=== PATIENT | male | born 1990 | race Caucasian/White ===

== ENCOUNTER 2017-06-22 08:16 | Outpatient (CLI) ==
[2016-07-21 17:30] VITALS: BMI 26.7
[2017-06-22 08:26] LABS: BASOPHILS % (AUTO) 0.4 % (0.0-3.0); EOSINOPHILS # (AUTO) 0.2 K/ul (0.0-0.7); EOSINOPHILS % (AUTO) 2.4 % (0.0-7.0); HEMATOCRIT 51.1 % (42.0-52.0); HEMOGLOBIN 17.9 g/dl (14.0-18.0); IMMATURE GRANULOCYTE % (AUTO) 0.6 % (0.0-5.0); LYMPHOCYTES # (AUTO) 3.2 K/uL (0.60-3.4); LYMPHOCYTES % (AUTO) 35.1 (10.0-50.0); MEAN CORPUSCULAR HEMOGLOBIN 29.7 pg (27.0-31.0); MEAN CORPUSCULAR VOLUME 84.7 fl (80.0-94.0); MONOCYTES # (AUTO) 0.8 K/uL (0.4-2.0); MONOCYTES % (AUTO) 8.8 (0-10); NEUTROPHILS # (AUTO) 4.8 K/ul (2.0-6.9); NEUTROPHILS % (AUTO) 52.7; PLATELET COUNT 258 10^3/uL (140-440); RED BLOOD COUNT 6.03 10^6/ul (4.70-6.10); WHITE BLOOD COUNT 9.07 K/ul (4.2-10.2)
[2017-06-22 09:17] LABS: ALBUMIN 4.1 g/dL (3.4-5.0); ALBUMIN/GLOBULIN RATIO 1.21; ANION GAP 12.1; BILIRUBIN,TOTAL 0.38 mg/dL (0.00-1.20); BUN/CREATININE RATIO 10.89; CALCIUM 9.9 mg/dL (8.2-10.2); CHOL/HDL RATIO 4.9 (4.5-6.4); CREATININE 1.01 mg/dL (0.60-1.10); POTASSIUM 4.1 mmol/L (3.5-5.1); TOTAL PROTEIN 7.5 g/dL (6.4-8.2)
== END 2017-06-22 08:17 | disposition home or self-care (01) ==
LOC: LAB 08:16
PROVIDERS: ATTEND Nurse Practitioner Family
DX: Z00.00 Encounter for general adult medical examination without abnormal findings (principal); R45.4 Irritability and anger; F39 Unspecified mood [affective] disorder; Z72.0 Tobacco use
CPT/HCPCS: 36415; 80053; 80061; 84443; 85025

== ENCOUNTER 2017-07-06 14:47 | Outpatient (CLI) ==
[2016-07-21 17:30] VITALS: BMI 26.7
== END 2017-07-06 14:48 | disposition home or self-care (01) ==
LOC: LAB 14:47
PROVIDERS: ATTEND Nurse Practitioner Family
DX: J02.9 Acute pharyngitis, unspecified (principal)
CPT/HCPCS: 87651; 87880

== ENCOUNTER 2017-08-28 18:28 | Emergency (ER) ==
[2017-08-28 18:36] VITALS: BP 154/92; TEMP 98.3; BMI 27.8
[2017-08-28] MEDS ORDERED: DILAUDID 2 MG/ML SYRINGE IM STA (18:38)
[2017-08-28] MEDS ORDERED: PHENERGAN 25 MG/ML VIAL IM STA (18:38)
--- NOTE | 2017-08-28 18:40 | ED.PDOC ---
General ED Provider: Dr. LUIS ALBERTO GÓMEZ-ER Chief Complaint: Tooth Problem Stated Complaint: liliana got a bad tooth Time Seen by Physician: 18:38 Mode of Arrival: Walk-In Information Source: Patient Exam Limitations: No limitations [facility] T[facility] Documentation Reviewed and Agree: Yes Reviewed sepsis parameters & appropriate labs ordered?: Yes System Inflammatory Response Syndrome: Not Applicable Sepsis Protocol: For patient's 13 years and over: Temp is 96.8 and below OR 101 and greater Pulse >90 BPM Resp >20/minute Acutely Altered Mental Status Are patient's symptoms suggestive of a new infection, such as: -Pneumonia -Skin, Soft Tissue -Endocarditis -UTI -Bone, Joint Infection -Implantable Device -Acute Abdominal Infection -Wound Infection -Meningitis -Blood Stream Catheter Infection -Unknown EENT Complaint Exam - Dental/Oral Complaint/Exam Mechanism of Injury: No known trauma Onset/Duration: several days Symptoms Are: Still present Timing: Constant Initial Severity: Mild Current Severity: Moderate Location: right lower molar Character: Reports: Dull, Aching, Throbbing Aggravating: Reports: Heat, Cold, Chewing Alleviating: Reports: None Associated Signs and Symptoms: Reports: Swelling. Denies: Discharge, Fever, Foul odor, Foul taste in mouth Tooth Findings: Present: Gross decay, Gross caries Cervical Lymphadenopathy Present: No Facial Swelling Present: No Bleeding Present: No Oropharynx Findings: Absent: Clots, Active bleeding Septal Hematoma: No Foreign Body Present: No Dysphagia Present: No Drooling Present: No Asymmetrical Tonsillar Swelling Present: No Uvula Midline: Yes Rylee-tonsillar Fluctuence: No Trismus Present: No Palatal Petechiae Present: No Scarlatinaform Rash Present: No Differential Diagnoses: Dental Abcess, Dental Caries Review of Systems - Review Of Systems Constitutional: Reports: No symptoms Eyes: Reports: No symptoms Ears, Nose, Mouth, Throat: Reports: Mouth pain Respiratory: Reports: No symptoms Cardiac: Reports: No symptoms GI: Reports: No symptoms : Reports: No symptoms Musculoskeletal: Reports: No symptoms Skin: Reports: No symptoms Neurological: Reports: No symptoms Endocrine: Reports: No symptoms Hematologic/Lymphatic: Reports: No symptoms All Other Systems: Reviewed and Negative Past Medical History - Past Medical History Previously Healthy: No Endocrine: Reports: None Cardiovascular: Reports: None Respiratory: Reports: None Hematological: Reports: None Gastrointestinal: Reports: None Genitourinary: Reports: None Neuro/Psych: Reports: None Musculoskeletal: Reports: Other Cancer: Reports: None - Surgical History General Surgical History: Reports: Orthopedic (rt hand surg) - Family History Family History: Reports: Unknown - Social History Smoking Status: Current every day smoker, Heavy tobacco smoker Hx Substance Use: No Alcohol Screening: Occasionally Physical Exam - Physical Exam Appearance: Well-appearing, No pain distress, Well-nourished Pain Distress: Moderate Eyes: ALEX, EOMI, Conjunctiva clear ENT: Ears normal, Nose normal Neck: Supple Respiratory: Airway patent, Breath sounds clear, Breath sounds equal, Respirations nonlabored Cardiovascular: RRR GI/: Soft, Nontender, No masses, Bowel sounds normal, No Organomegaly Musculoskeletal: Normal strength, ROM intact, No edema, No calf tenderness Skin: Warm, Dry, Normal color Neurological: Sensation intact, Motor intact, Reflexes intact, Cranial nerves intact, Alert, Oriented Psychiatric: Affect appropriate, Mood appropriate Critical Care Note - Critical Care Note Total Time (mins): 0 Course - Course Orders, Labs, Meds: Orders Category Date Time Status Hydromorphone HCl/Pf [Dilaudid 2 mg/ml Syringe] MEDS 08/28/17 18:38 Stat 2 mg IM ONCE STA Promethazine HCl [Phenergan 25 mg/ml Vial] MEDS 08/28/17 18:38 Stat 25 mg IM ONCE STA Medications Generic Name Dose Route Start Last Admin Trade Name Freq PRN Reason Stop Dose Admin Hydromorphone HCl 2 mg 08/28/17 18:38 Dilaudid 2 Mg/Ml Syringe IM 08/28/17 18:39 ONCE STA Promethazine HCl 25 mg 08/28/17 18:38 Phenergan 25 Mg/Ml Vial IM 08/28/17 18:39 ONCE STA Vital Signs: Temp Pulse Resp BP Pulse Ox 08/28/17 18:29 98.3 F 79 16 154/92 H 96 Departure - Departure Time of Disposition: 18:40 Disposition: HOME SELF-CARE Discharge Problem: Toothache Instructions: Dental Caries (GEN) Condition: Good Pt referred to PMD for follow-up: Yes IPMP verified?: No Additional Instructions: clindamycin 150mg tid x 5 days--norco 7.5mg q 4hrs prn pain #10--f/u dentist zack Allergies/Adverse Reactions: Allergies aspirin Adverse Reaction (Verified 08/28/17 18:31) codeine Adverse Reaction (Verified 08/28/17 18:31) Penicillins Adverse Reaction (Verified 08/28/17 18:31) Disposition Discussed With: Patient, Family
== END 2017-08-28 19:10 | disposition home or self-care (01) ==
LOC: ED 18:28
DX: K08.89 Other specified disorders of teeth and supporting structures (principal); K02.7 Dental root caries; F17.210 Nicotine dependence, cigarettes, uncomplicated
CPT/HCPCS: 96372; 99282

== ENCOUNTER 2017-10-08 20:15 | Emergency (ER) ==
[2017-10-08 20:24] VITALS: BP 141/88; TEMP 98.1; BMI 28.3
--- NOTE | 2017-10-08 20:40 | ED.PDOC ---
General ED Provider: Dr. SAIRA BUSTOS Chief Complaint: Abdominal Pain Stated Complaint: Been hurting in the left side of the abdomin since morning, not associated with diarrhea, nausea or vomiting. Time Seen by Physician: 20:38 Mode of Arrival: Walk-In Information Source: Patient Primary Care Provider: SAIRA [facility] Nursing and Triage Documentation Reviewed and Agree: Yes Reviewed sepsis parameters & appropriate labs ordered?: No System Inflammatory Response Syndrome: Not Applicable Sepsis Protocol: For patient's 13 years and over: Temp is 96.8 and below OR 101 and greater Pulse >90 BPM Resp >20/minute Acutely Altered Mental Status Are patient's symptoms suggestive of a new infection, such as: -Pneumonia -Skin, Soft Tissue -Endocarditis -UTI -Bone, Joint Infection -Implantable Device -Acute Abdominal Infection -Wound Infection -Meningitis -Blood Stream Catheter Infection -Unknown GI Complaint Exam - Abdominal Pain Complaint/Exam Onset: Sudden Symptoms Are: Still present Timing: Constant Initial Severity: Severe Current Severity: Severe Location of Pain: LLQ Radiates To: Reports: Flank Character: Reports: Aching, Throbbing Aggravating: Reports: Movement Alleviating: Reports: None Associated Signs and Symptoms: Denies: Diaphoresis, Fever, Cough, Chest pain, Dizziness, Back pain, Constipation, Blood in stool, Dysuria, Urinary frequency, Decreased urine output, Decreased appetite, Discharge, Nausea, Vomiting, Diarrhea, Decreased activity AAA Risk Factors: Reports: None Cardiac Risk Factors: Reports: None Testicular Torsion Risk Factors: Reports: None Surgical Obstruction Risk Factors: Reports: None Related Surgical History: Reports: None Abdominal Findings: Present: None Differential Diagnoses: Pancreatitis, Ureteral Stone, UTI Review of Systems - Review Of Systems Constitutional: Reports: No symptoms Eyes: Reports: No symptoms Ears, Nose, Mouth, Throat: Reports: No symptoms Respiratory: Reports: No symptoms Cardiac: Reports: No symptoms GI: Reports: Abdominal pain : Reports: No symptoms Musculoskeletal: Reports: No symptoms Skin: Reports: No symptoms Neurological: Reports: No symptoms Endocrine: Reports: No symptoms Hematologic/Lymphatic: Reports: No symptoms All Other Systems: Reviewed and Negative Past Medical History - Past Medical History Previously Healthy: No Endocrine: Reports: None Cardiovascular: Reports: None Respiratory: Reports: None Hematological: Reports: None Gastrointestinal: Reports: None Genitourinary: Reports: None Neuro/Psych: Reports: None Musculoskeletal: Reports: Other Cancer: Reports: None - Surgical History General Surgical History: Reports: Orthopedic (rt hand surg) - Family History Family History: Reports: Unknown - Social History Smoking Status: Current every day smoker, Heavy tobacco smoker Smoking Cessation Counseling Time: > 3 min - 10 min Hx Substance Use: No Alcohol Screening: Occasionally - Immunizations Tetanus Shot up to Date: Yes Physical Exam - Physical Exam Appearance: Ill-appearing Pain Distress: Moderate Eyes: ALEX, EOMI, Conjunctiva clear ENT: Ears normal, Nose normal, Oropharynx normal Respiratory: Airway patent, Breath sounds clear, Breath sounds equal, Respirations nonlabored Cardiovascular: RRR, Pulses normal, No rub, No murmur GI/: Soft, Tender Musculoskeletal: Normal strength, ROM intact, No edema, No calf tenderness Skin: Warm, Dry, Normal color Neurological: Sensation intact, Motor intact, Reflexes intact, Cranial nerves intact, Alert, Oriented Psychiatric: Affect appropriate, Mood appropriate Interpretation - Radiology Interpretation Radiology Interpretation By: Radiologist Radiology Results: Negative Exam Interpreted: CT Scan Critical Care Note - Critical Care Note Total Time (mins): 30 Course - Course Hematology/Chemistry: 10/08/17 20:45 10/08/17 20:45 Orders, Labs, Meds: Lab Review 10/08/17 10/08/17 20:45 20:45 WBC 9.08 RBC 5.42 Hgb 16.3 Hct 46.2 MCV 85.2 MCH 30.1 MCHC 35.3 RDW Coeff of Maddie 13.2 Plt Count 229 Immature Gran % (Auto) 0.3 Neut % (Auto) 49.6 Lymph % (Auto) 37.1 Dixie % (Auto) 10.7 H Eos % (Auto) 1.9 Baso % (Auto) 0.4 Immature Gran # (Auto) 0.0 Neut # (Auto) 4.5 Lymph # (Auto) 3.4 Dixie # (Auto) 1.0 Eos # (Auto) 0.2 Baso # (Auto) 0.0 Sodium 140 Potassium 4.0 Chloride 103 Carbon Dioxide 25 Anion Gap 16.0 BUN 13 Creatinine 1.02 Estimated GFR (MDRD) 89.00 BUN/Creatinine Ratio 12.74 Glucose 102 H Calcium 9.6 Total Bilirubin 0.5 AST 19 ALT 20 Alkaline Phosphatase 129 Total Protein 7.0 Albumin 3.9 Globulin 3.1 Albumin/Globulin Ratio 1.26 Amylase 56 Lipase 31 Orders Category Date Time Status AMYLASE Stat LAB 10/08/17 20:45 Completed CBC W/ AUTO DIFF Stat LAB 10/08/17 20:45 Completed COMPREHENSIVE METABOLIC PANEL Stat LAB 10/08/17 20:45 Completed LIPASE Stat LAB 10/08/17 20:45 Completed URINALYSIS C & S IF INDICATED Stat LAB 10/08/17 21:10 Ordered Meperidine HCl/Pf [Demerol 25 mg/ml Vial] MEDS 10/08/17 20:37 Discontinued 25 mg IM ONCE STA Ondansetron HCl/Pf [Zofran 4 mg/2 ml] MEDS 10/08/17 20:37 Discontinued 4 mg IM ONCE STA CT ABDOMEN/PELVIS WO CONTRAST Stat RADS 10/08/17 20:37 Completed Medications Discontinued Medications Generic Name Dose Route Start Last Admin Trade Name Freq PRN Reason Stop Dose Admin Meperidine HCl 25 mg 10/08/17 20:37 10/08/17 20:56 Demerol 25 Mg/Ml Vial IM 10/08/17 20:38 25 mg ONCE STA Administration Ondansetron HCl 4 mg 10/08/17 20:37 10/08/17 20:56 Zofran 4 Mg/2 Ml IM 10/08/17 20:38 4 mg ONCE STA Administration Vital Signs: Temp Pulse Resp BP Pulse Ox 10/08/17 20:15 98.1 F 86 18 141/88 H 98 Departure - Departure Time of Disposition: 21:13 Disposition: HOME SELF-CARE Discharge Problem: Abdominal pain Instructions: Abdominal Pain (ED) Condition: Stable Pt referred to PMD for follow-up: Yes IPMP verified?: No Additional Instructions: Increase hydration Soft diet Allergies/Adverse Reactions: Allergies aspirin Adverse Reaction (Verified 10/08/17 20:24) codeine Adverse Reaction (Verified 10/08/17 20:24) Penicillins Adverse Reaction (Verified 10/08/17 20:24) Disposition Discussed With: Patient, Family
[2017-10-08] MEDS: ZOFRAN 4 MG/2 ML IM STA (20:56)
[2017-10-08] MEDS: DEMEROL 25 MG/ML VIAL IM STA (20:56)
--- NOTE | 2017-10-08 21:11 | CT ---
EXAM: CT of the abdomen and pelvis without contrast. HISTORY: Left-sided abdominal pain. PROCEDURE: Contiguous axial CT images of the abdomen and pelvis without contrast with coronal and sa gittal reformats. FINDINGS: The liver, gallbladder, pancreas, spleen, adrenal glands and left kidney are normal in appe arance. There is a fluid density cyst in the right kidney. No nephrolithiasis, ureterolithiasis or hydronephrosis. The abdominal aorta is normal in appearance. The visualized loops of bowel and append ix are normal in appearance. No free fluid or free air in the abdomen or pelvis. The bladder is mini yazan filled with no abnormality identified. The seminal vesicles and prostate gland are unremarkabl e. There are chronic bilateral L5 pars defects with 5 mm anterolisthesis of L5 on S1. Impression: No acute findings in the abdomen or pelvis. Chronic bilateral L5 pars defects with 5 mm anterolisthesis of L5 on S1.
== END 2017-10-08 21:34 | disposition home or self-care (01) ==
LOC: ED 20:15
DX: R10.32 Left lower quadrant pain (principal); F17.210 Nicotine dependence, cigarettes, uncomplicated
CPT/HCPCS: 36415; 80053; 81001; 82150; 83690; 85025; 96372; 99283

== ENCOUNTER 2017-10-26 10:17 | Outpatient (CLI) | END 2017-10-26 10:18 | disposition home or self-care (01) | LOC: RHC-LAB 10:17 | PROVIDERS: ATTEND Nurse Practitioner Family | DX: R53.83 Other fatigue (principal); R68.89 Other general symptoms and signs | CPT/HCPCS: 36415; 82306; 82607; 84443 ==

== ENCOUNTER 2017-11-10 22:31 | Outpatient (CLI) | END 2017-11-10 22:32 | disposition home or self-care (01) | LOC: NONPT 22:31 | PROVIDERS: ATTEND Family Medicine | DX: R53.81 Other malaise (principal); R53.83 Other fatigue; R40.0 Somnolence; R45.87 Impulsiveness | CPT/HCPCS: 80053; 84443; 85025 ==

== ENCOUNTER 2017-12-07 15:58 | Outpatient (CLI) | END 2017-12-07 15:59 | disposition home or self-care (01) | LOC: CAR 15:58 | PROVIDERS: ATTEND Psychiatry & Neurology Sleep Medicine | DX: G47.30 Sleep apnea, unspecified (principal) ==

== ENCOUNTER 2018-01-03 18:04 | Emergency (ER) ==
[2018-01-03 18:12] VITALS: BP 134/91; TEMP 98.7; BMI 28.0
--- NOTE | 2018-01-03 18:17 | ED.PDOC ---
General ED Provider: Dr. ALEJANDRO ALMODOVAR Chief Complaint: Foot Pain/Injury Stated Complaint: right ankle and foot injury Time Seen by Physician: 18:10 (twisted ankle while jumping 1 hr ago) Mode of Arrival: Wheelchair Information Source: Patient Exam Limitations: No limitations Primary Care Provider: GIANA LEY Nursing and Triage Documentation Reviewed and Agree: Yes Reviewed sepsis parameters & appropriate labs ordered?: Yes System Inflammatory Response Syndrome: Not Applicable Sepsis Protocol: For patient's 13 years and over: Temp is 96.8 and below OR 101 and greater Pulse >90 BPM Resp >20/minute Acutely Altered Mental Status Are patient's symptoms suggestive of a new infection, such as: -Pneumonia -Skin, Soft Tissue -Endocarditis -UTI -Bone, Joint Infection -Implantable Device -Acute Abdominal Infection -Wound Infection -Meningitis -Blood Stream Catheter Infection -Unknown Musculoskeletal Complaint Exam - Ankle/Foot Complaint/Exam Location of Injury: Reports: Right, Ankle, Foot Mechanism of Injury: Reports: Trauma (twisted the ankle ) Onset/Duration: 1hr Symptoms Are: Reports: Still present Onset of Pain: Reports: Immediate Initial Severity: Moderate Current Severity: Moderate Location: Reports: Discrete (lateral ankle ) Alleviating: Reports: Rest, Position Aggravating: Reports: Movement Able to Bear Weight: Yes Associated Signs and Symptoms: Reports: Swelling. Denies: Redness, Bruising, Fever, Weakness, Numbness, Tingling Gout Risk Factors: Reports: None Related Surgical History: Reports: None Lower Extremity Findings: Present: Swelling Achilles Tendon Abnormality: No Tenderness: Present: Lateral malleolus Limited Range of Motion: Present: Inversion, Eversion Differential Diagnosis: Closed Fracture, Sprain, Strain Review of Systems - Review Of Systems Constitutional: Reports: No symptoms Eyes: Reports: No symptoms Ears, Nose, Mouth, Throat: Reports: No symptoms Respiratory: Reports: No symptoms Cardiac: Reports: No symptoms GI: Reports: No symptoms : Reports: No symptoms Musculoskeletal: Reports: Joint pain (right ankle and foot ) Skin: Reports: No symptoms Neurological: Reports: No symptoms Endocrine: Reports: No symptoms Hematologic/Lymphatic: Reports: No symptoms All Other Systems: Reviewed and Negative Past Medical History - Past Medical History Previously Healthy: No Endocrine: Reports: None Cardiovascular: Reports: None Respiratory: Reports: None Hematological: Reports: None Gastrointestinal: Reports: None Genitourinary: Reports: None Neuro/Psych: Reports: None Musculoskeletal: Reports: Other Cancer: Reports: None - Surgical History General Surgical History: Reports: Orthopedic (rt hand surg) - Family History Family History: Reports: Unknown - Social History Smoking Status: Current every day smoker, Heavy tobacco smoker Hx Substance Use: No ([facility]) Alcohol Screening: Occasionally - Immunizations Tetanus Shot up to Date: Yes Physical Exam - Physical Exam Appearance: Well-appearing, No pain distress, Well-nourished Eyes: ALEX, EOMI, Conjunctiva clear ENT: Ears normal, Nose normal, Oropharynx normal Respiratory: Airway patent, Breath sounds clear, Breath sounds equal, Respirations nonlabored Cardiovascular: RRR, Pulses normal, No rub, No murmur GI/: Soft, Nontender, No masses, Bowel sounds normal, No Organomegaly Musculoskeletal: Limited ROM (right ankle) Skin: Warm, Dry, Normal color Neurological: Sensation intact, Motor intact, Reflexes intact, Cranial nerves intact, Alert, Oriented Psychiatric: Affect appropriate, Mood appropriate Critical Care Note - Critical Care Note Total Time (mins): 0 Course - Course Vital Signs: Temp Pulse Resp BP Pulse Ox 01/03/18 18:05 98.7 F 121 H 16 134/91 H 99 Departure - Departure Time of Disposition: 19:00 Disposition: HOME SELF-CARE Discharge Problem: Injury of foot Instructions: Swollen Joint (ED), Ankle Sprain (ED), Ankle Sprain (DC) Condition: Good Pt referred to PMD for follow-up: Yes IPMP verified?: No Additional Instructions: Please call your Family Physician as soon as possible to schedule a follow-up appointment. Allergies/Adverse Reactions: Allergies aspirin Adverse Reaction (Verified 10/08/17 20:24) codeine Adverse Reaction (Verified 10/08/17 20:24) Penicillins Adverse Reaction (Verified 10/08/17 20:24) Disposition Discussed With: Patient
--- NOTE | 2018-01-03 18:44 | DI ---
EXAM: Three views of the right ankle. History: Right ankle pain. Findings: No acute fracture or dislocation. No abnormal calcifications or radiopaque foreign bodies . Joint spaces are relatively preserved. Mild lateral soft tissue swelling. Impression: No acute osseous abnormality. Mild lateral soft tissue swelling
--- NOTE | 2018-01-03 18:45 | DI ---
EXAM: Three views of the right foot. History: Right foot pain. Findings: No acute fracture or dislocation. No abnormal calcifications or radiopaque foreign bodies . Mild lateral soft tissue swelling at the lateral malleolus. Joint spaces are preserved. Impression: No acute osseous abnormality. Mild lateral soft tissue swelling at the ankle
== END 2018-01-03 19:05 | disposition home or self-care (01) ==
LOC: ED 18:04
DX: S93.401A Sprain of unspecified ligament of right ankle, initial encounter (principal); S99.921A Unspecified injury of right foot, initial encounter; X50.1XXA Overexertion from prolonged static or awkward postures, initial encounter; F17.210 Nicotine dependence, cigarettes, uncomplicated
CPT/HCPCS: 99282

== ENCOUNTER 2018-02-01 11:48 | Outpatient (CLI) | END 2018-02-01 12:08 | disposition short-term general hospital (02) | LOC: AMBL 11:48 | PROVIDERS: ATTEND Internal Medicine | DX: R07.9 Chest pain, unspecified (principal); R06.02 Shortness of breath; M79.602 Pain in left arm ==

== ENCOUNTER 2018-04-08 20:21 | Emergency (ER) ==
[2018-04-08 20:21] VITALS: BMI 29.0
[2018-04-08 20:45] VITALS: BP 149/89; TEMP 98.2
[2018-04-08] MEDS ORDERED: DECADRON 4 MG/ML SDV IM STA (20:49)
[2018-04-08] MEDS ORDERED: ELAVIL PO STA (20:50)
--- NOTE | 2018-04-08 20:51 | ED.PDOC ---
General ED Provider: Dr. FRANK URIAS Chief Complaint: Hip Pain/Injury Stated Complaint: Patient was seen recently with back pain with radiation to the left lower ext. with some tingling sensation. He was treated with steroids which helped. States that hydrocodone did not help. He has an Apt with Dr. Ley next week. The pain got worse today hence returned to the ER. He states that he had an MRI recently that showed herniated disks Time Seen by Physician: 20:40 Mode of Arrival: Walk-In Information Source: Patient Exam Limitations: No limitations Primary Care Provider: GIANA LEY Nursing and Triage Documentation Reviewed and Agree: Yes Does patient meet sepsis criteria?: No If yes, has appropriate treatment been initiated?: No System Inflammatory Response Syndrome: Not Applicable Sepsis Protocol: For patient's 13 years and over: Temp is 96.8 and below OR 101 and greater Pulse >90 BPM Resp >20/minute Acutely Altered Mental Status Are patient's symptoms suggestive of a new infection, such as: -Pneumonia -Skin, Soft Tissue -Endocarditis -UTI -Bone, Joint Infection -Implantable Device -Acute Abdominal Infection -Wound Infection -Meningitis -Blood Stream Catheter Infection -Unknown Musculoskeletal Complaint Exam - Back Pain Complaint/Exam Mechanism of Injury: Reports: No known trauma Onset/Duration: constant Symptoms Are: Still present Timing: Constant Initial Severity: Severe Current Severity: Severe Location: Reports: Radiating Character: Reports: Aching, Throbbing, Spasmodic, Burning Aggravating: Reports: Movements, Lifting, Bending, Walking Alleviating: Reports: None Associated Signs and Symptoms: Reports: Numbness, Tingling Related History: Reports: Similar episode TAD Risk Factors: Reports: None AAA Risk Factors: Reports: None Cauda Equina Risk Factors: Reports: None Epidural Abcess Risk Factors: Reports: None Related Surgical History: Reports: None Focal Tenderness: Yes (left lower back ) Paraspinal Muscle Tenderness: No Paraspinal Muscle Spasm: Yes Scoliosis: No Lordosis: No Kyphosis: No SLR Test: Right Negative, Left Positive Hip Motion Testing Pain: Right Negative, Left Negative Focal Weakness: Present: None Focal Sensory Loss: Present: None Gait: Present: Abnormal (atalgic gait ) Differential Diagnoses: Herniated Disk, Strain, Sprain Review of Systems - Review Of Systems Constitutional: Reports: No symptoms Eyes: Reports: No symptoms Ears, Nose, Mouth, Throat: Reports: No symptoms Respiratory: Reports: No symptoms Cardiac: Reports: No symptoms GI: Reports: No symptoms : Reports: No symptoms Musculoskeletal: Reports: Back pain Skin: Reports: No symptoms Neurological: Reports: Numbness (to the left lower ext ) Endocrine: Reports: No symptoms Hematologic/Lymphatic: Reports: No symptoms All Other Systems: Reviewed and Negative Past Medical History - Past Medical History Previously Healthy: No Endocrine: Reports: None Cardiovascular: Reports: None Respiratory: Reports: None Hematological: Reports: None Gastrointestinal: Reports: None Genitourinary: Reports: None Neuro/Psych: Reports: None Musculoskeletal: Reports: Other Cancer: Reports: None - Surgical History General Surgical History: Reports: Orthopedic (rt hand surg) - Family History Family History: Reports: Unknown - Social History Smoking Status: Current every day smoker, Heavy tobacco smoker Hx Substance Use: No ([place]) Alcohol Screening: Occasionally - Immunizations Tetanus Shot up to Date: Yes Physical Exam - Physical Exam Appearance: Ill-appearing Ill-appearing: Mild Pain Distress: Severe Neck: Supple Respiratory: Airway patent, Breath sounds clear, Breath sounds equal, Respirations nonlabored Cardiovascular: RRR, Pulses normal, No rub, No murmur GI/: Soft, Nontender, No masses, Bowel sounds normal, No Organomegaly Musculoskeletal: Limited ROM (on the back ) Neurological: Motor intact, Reflexes intact, Alert Psychiatric: Anxious Re-Evaluation - Re-Evaluation Time of Re-Evaluation: 22:10 Status: Improved (able to walk better. ) Pain Level: better Critical Care Note - Critical Care Note Total Time (mins): 0 Course - Course Orders, Labs, Meds: Orders Category Date Time Status Amitriptyline HCl [Elavil] MEDS 04/08/18 20:50 Discontinued 25 mg PO ONCE STA Dexamethasone 4 mg/ml Inj [Decadron 4 mg/ml Sdv] MEDS 04/08/18 20:49 Discontinued 8 mg IM ONCE STA Hydromorphone HCl [Dilaudid 0.5 mg/0.5 ml Syringe] MEDS 04/08/18 21:43 Discontinued 1 mg IM ONCE STA Medications Discontinued Medications Generic Name Dose Route Start Last Admin Trade Name Freq PRN Reason Stop Dose Admin Amitriptyline HCl 25 mg 04/08/18 20:50 04/08/18 21:14 Elavil PO 04/08/18 20:51 25 mg ONCE STA Administration Dexamethasone Sodium Phosphate 8 mg 04/08/18 20:49 04/08/18 21:16 Decadron 4 Mg/Ml Sdv IM 04/08/18 20:50 8 mg ONCE STA Administration Hydromorphone HCl 1 mg 04/08/18 21:43 04/08/18 21:48 Dilaudid 0.5 Mg/0.5 Ml Syringe IM 04/08/18 21:44 1 mg ONCE STA Administration Vital Signs: Temp Pulse Resp BP Pulse Ox 04/08/18 20:22 98.2 F 82 18 149/89 H 95 Departure - Departure Time of Disposition: 22:16 Disposition: HOME SELF-CARE Discharge Problem: Piriformis syndrome of left side Instructions: Piriformis Syndrome (ED) Condition: Stable Pt referred to PMD for follow-up: Yes IPMP verified?: No Additional Instructions: Take medications as prescribed Stop taking Medro dose pack since you will be on a higher dose of steroids Keep Apt Follow up with PCP as scheduled. Buy over the counter back brace. Prescriptions: Amitriptyline HCl 50 mg PO BID PRN #30 tablet PRN Reason: Back pain Prednisone 40 mg PO DAILYWM #10 tablet Allergies/Adverse Reactions: Allergies aspirin Adverse Reaction (Verified 04/08/18 20:31) Penicillins Adverse Reaction (Verified 04/08/18 20:31) Home Medications: Ambulatory Orders Amitriptyline HCl 50 mg PO BID PRN #30 tablet 04/08/18 Hydrocodone Bit/Acetaminophen [[place] 7.5-325] 1 each PO Q6HR PRN 04/08/18 Prednisone 40 mg PO DAILYWM #10 tablet 04/08/18 Disposition Discussed With: Patient, Family
[2018-04-08] MEDS ORDERED: DILAUDID 0.5 MG/0.5 ML SYRINGE IM STA ×2 (21:38→21:43)
== END 2018-04-08 22:14 | disposition home or self-care (01) ==
LOC: ED 20:21
DX: G57.02 Lesion of sciatic nerve, left lower limb (principal); F17.210 Nicotine dependence, cigarettes, uncomplicated
CPT/HCPCS: 96372; 99282